=== PATIENT | female | born 1960 | race American Indian/Alaskan Native ===

== ENCOUNTER 2017-06-19 10:36 | Outpatient (CLI) | payer BC ==
--- NOTE | 2017-06-19 12:45 | Cat Scan Report ---
CT CHEST WITH CONTRAST: 06/19/17 CLINICAL: Shortness of breath and chest tightness. TECHNIQUE: PE protocol with volumetric acquisition and 1.25 mm scan reconstructions after the uneventful intravenous injection of 100 cc Omnipaque 350. Consent was obtained prior to the administration of contrast. FINDINGS: Satisfactory opacification of the central pulmonary arteries but less than optimal opacification of subsegmental arteries. No central pulmonary artery thrombus is identified. Normal heart and aorta. Normal lungs and mediastinum. Normal thyroid, trachea and esophagus. The upper abdomen is unremarkable. The bones and soft tissues are normal. IMPRESSION: Negative study for central pulmonary embolus. The study is not adequate to exclude a small burden of thrombus in subsegmental arteries. This is likely related to body habitus and less than optimal timing of the bolus.
== END 2017-06-19 10:37 | disposition home or self-care (01) ==
LOC: CT 10:36
PROVIDERS: ATTEND Internal Medicine
DX: R06.02 Shortness of breath (principal); R07.89 Other chest pain
CPT/HCPCS: 71275; Q9967